=== PATIENT | male | born 1945 | race Caucasian/White ===

== ENCOUNTER 2024-01-08 07:15 | Day surgery (SDC) | payer MEDICARE, OTHER, SELFPAY ==
[2024-01-08] VITALS (7 sets, daily range): BP systolic 121–152; BP diastolic 69–131; BMI 33.5
[2024-01-08] MEDS: NSS 290 ML IV (07:59)
[2024-01-08 08:06] LABS: Glucose - Point of Care 135 mg/dl (70-99)
[2024-01-08 08:10] LABS: Hematocrit 31.5 % (39.0-52.0); Hemoglobin 11.1 g/dL (13.0-18.0); Mean Corp Hgb Conc. 35.2 g/dL (33.0-37.0); Mean Corpuscular Hgb 34.3 pg (27.0-31.0); Mean Corpuscular Volume 97.2 fL (80.0-94.0); Mean Platelet Volume 9.6 fL (7.4-10.4); Platelet Count 167 10^3/uL (130-400); Red Blood Cell Count 3.24 10^6/uL (4.70-6.10); Red Cell Dist. Width 13.8 % (11.5-14.5); White Blood Cell Count 5.4 10^3/uL (4.8-10.8)
[2024-01-08 08:26] LABS: Blood Urea Nitrogen 16 mg/dl (9-20); Calcium 9.5 mg/dl (8.4-10.2); Carbon Dioxide 26 mmol/L (22-30); Chloride 103 mmol/L (98-107); Estimated Creatinine Clearance 98 ml/min; Glucose 136 mg/dl (70-99); Potassium 3.9 mmol/L (3.5-5.1); Sodium 137 mmol/L (135-145); eGFR > 60.00
--- NOTE | 2024-01-08 09:36 | ITS.CL.CATH ---
[employer] - Catheterization
Cardiac Catheterization
Procedure Report:
CARDIAC CATHETERIZATION REPORT
Date of Procedure: 01/08/2024
Referring: Kushal Canales MD
Indication: Nonsustained ventricular tachycardia
�
HEMODYNAMIC DATA
AO: 135/64
LV: 135/14
�
LEFT VENTRICULOGRAPHY: Borderline anterolateral hypokinesis with EF 52%
�
CORONARY ANGIOGRAPHY
Dominance: Right
Left Main: Normal
LAD: There is moderate calcification of the proximal LAD. There are trivial luminal irregularities without areas of discrete stenosis in the LAD
Circumflex: Mild luminal irregularities
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 There are mild luminal irregularities throughout the large dominant RCA. The acute marginal branch supplies the PDA territory.
�
Closure Device: 6 Prydeinig Angio-Seal RFA
�
Radiation (mGy): 409
DAP (cm2.Gy): 33.3
Fluoroscopy time: 3.5 minutes
�
CONCLUSIONS
1:�Borderline anterolateral hypokinesis with EF 52%
2:�Mild nonobstructive CAD-recommend continued low-dose aspirin and statin to achieve LDL less than 70
3. He will return to see Dr. Canales for discussion of any further evaluation
�
�
Copy to: Kushal Canales MD, Juanjo Unger MD
�
Rhett Julien MD, [facility], [facility]
--- NOTE | 2024-01-08 10:15 | PTCARENOTE ---
bp not accurate, cuff was loose. Redo bp wnl
--- NOTE | 2024-01-08 11:48 | PTCARENOTE ---
Pt's HR on tele 40-50's & irregular, ECG obtained and nurse practitioner notified and viewing ecg.
--- NOTE | 2024-01-08 12:36 | PTCARENOTE ---
Pt's HR in the 50's, pt OOB to bathroom and tolerated well. VSS. D/C instructions given with good verbal feedback.
== END 2024-01-08 12:37 | disposition home or self-care (01) ==
LOC: CATH 07:15
PROVIDERS: ATTENDING PHYSICIAN Internal Medicine Cardiovascular Disease; FAMILY PHYSICIAN Internal Medicine; OTHER PHYSICIAN Internal Medicine Cardiovascular Disease
DX: I25.10 Atherosclerotic heart disease of native coronary artery without angina pectoris (principal); I25.84 Coronary atherosclerosis due to calcified coronary lesion; Z79.899 Other long term (current) drug therapy; Z79.84 Long term (current) use of oral hypoglycemic drugs
CPT/HCPCS: 80048; 82962; 85027; 93005; 93458; C1760; C1894; Q9967

== ENCOUNTER 2024-04-29 06:08 | Day surgery (SDC) | payer MEDICARE, OTHER, SELFPAY ==
[2024-04-29] VITALS (16 sets, daily range): BP systolic 105–148; BP diastolic 71–93; BMI 34.1
[2024-04-29 07:00] LABS: Hematocrit 37.4 % (39.0-52.0); Hemoglobin 12.9 g/dL (13.0-18.0); Mean Corp Hgb Conc. 34.5 g/dL (33.0-37.0); Mean Corpuscular Hgb 34.2 pg (27.0-31.0); Mean Corpuscular Volume 99.2 fL (80.0-94.0); Platelet Count 149 10^3/uL (130-400); Red Blood Cell Count 3.77 10^6/uL (4.70-6.10); Red Cell Dist. Width 13.1 % (11.5-14.5); White Blood Cell Count 5.9 10^3/uL (4.8-10.8)
[2024-04-29 07:07] LABS: Glucose - Point of Care 129 mg/dl (70-99)
[2024-04-29 07:15] LABS: ALT (SGPT) 27 U/L (0-50); AST (SGOT) 32 U/L (17-59); Albumin 4.8 g/dl (3.5-5.0); Alkaline Phosphatase 57 U/L (38-126); Blood Urea Nitrogen 14 mg/dl (9-20); Calcium 9.5 mg/dl (8.4-10.2); Carbon Dioxide 24 mmol/L (22-30); Chloride 104 mmol/L (98-107); Estimated Creatinine Clearance 97 ml/min; Glucose 134 mg/dl (70-99); Potassium 3.9 mmol/L (3.5-5.1); Sodium 144 mmol/L (135-145); Total Bilirubin 0.5 mg/dl (0.2-1.3); Total Protein 7.5 g/dl (6.3-8.2); eGFR > 60.00
[2024-04-29 07:17] LABS: APTT 26.3 Sec (23.4-35.0); INR 0.97; PT 13.2 Sec (11.4-14.6)
--- NOTE | 2024-04-29 08:53 | ITS.CL.ABL ---
[employer] [facility]
Ablation
Procedure Report:
ELECTROPHYSIOLOGY STUDY REPORT
Date of Procedure: April 29, 2024
Referring: Dr. Kushal Canales
INDICATION: History of Mobitz 1 type II AV block, inferior scar on nuclear stress testing, ejection fraction 52%, nonsustained VT and lightheadedness
HISTORY: As above
PROCEDURE:
After informed consent and patient safety timeout ultrasound guidance was utilized for right femoral venous access with 2 6 [place] sheaths. At the end of the procedure sheaths were pulled and a [id number] suture was placed. 2 sheaths were
placed and 2 quadripolar catheters were placed first to the right atrium and for HIS recording. The quadripolar catheter was then placed into the RV apex and the mid septum.
Baseline intracardiac measurements were obtained in sinus rhythm. HRA, HIS, RVA.
Atrial decremental extrastimuli were delivered from the HRA and the CS. Single, double, and triple extrastimuli as well as burst pacing were performed from both sites in both the baseline state. Atrial and AVN antegrade ERP's were determined.
Antegrade as well as retrograde AVN [place] CL's were determined.
MEASUREMENTS:
BASELINE
A-A: 800 ms
P-P: 800 ms
A-H: 118 ms
H-V 49 ms
P-R: 240 ms
QRS: 108 ms
QT: 380 ms
SNRT: Normal at 600 ms
AVN W[place]kebach: 640 ms
AVN Fast Pathway ERP: 640
AVN Slow Pathway ERP: No evidence for dual katerina physiology was noted with atrial pacing. No AH jump was notable with extrastimuli
HIS-Purkinje System: Normal; no distal block
Retrograde Conduction Decremental, Retrograde Block less than 800 ms
RVA ERP: 600�2 40, 400�2 20
The patient was noninducible for ventricular arrhythmia with up to triple extrastimuli with only single ventricular beats noted after triple extrastimuli. Pressor support was required to tolerate ventricular pacing. Bradycardia study demonstrated
normal HV interval and AV Wenkebach as above although the patient has baseline Mobitz 1 type II AV block on his resting ECG and this finding was expected.
COMPLICATIONS: None
SUMMARY: Noninducible for ventricular arrhythmia with up to triple extrastimuli and no evidence for infranodal AV conduction disease. 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
RECOMMENDATIONS:
1. Out of bed in 4 hours and same-day discharge
2. Outpatient follow-up with Dr. Canales and no device-based therapy is recommended at this time
== END 2024-04-29 12:35 | disposition home or self-care (01) ==
LOC: CATH 06:08
PROVIDERS: ATTENDING PHYSICIAN Internal Medicine Cardiovascular Disease; FAMILY PHYSICIAN Internal Medicine; OTHER PHYSICIAN Internal Medicine Cardiovascular Disease
DX: I44.1 Atrioventricular block, second degree (principal); R94.39 Abnormal result of other cardiovascular function study; I47.29 Other ventricular tachycardia; R42 Dizziness and giddiness; Z88.0 Allergy status to penicillin
CPT/HCPCS: 93620; C1730; C1894; 80053; 82962; 85027; 85610; 85730